=== PATIENT | male | born 1990 | race Caucasian/White ===

== ENCOUNTER 2020-06-20 19:38 | Emergency (ER) | payer OTHER ==
[~2020-06-20] VITALS: Ht 182.9 cm; Wt 68.0 kg
[~2020-06-20 19:38] MED LIST: DIVA500EC PO; IBUP800 PO; METPHE18ER PO; NAPR500 PO; NAPR550 PO; PENVK500 PO; RXNAPNA550 PO; RXPENVK250 PO
[2020-06-20] MEDS ORDERED: Veetids 500500 MG PO (21:44)
== END 2020-06-20 22:01 | disposition home or self-care (01) ==
LOC: ER 19:38
DX: K04.7 Periapical abscess without sinus (principal); Z87.891 Personal history of nicotine dependence
CPT/HCPCS: 99282